=== PATIENT | male | born 1995 | race Caucasian/White ===

== ENCOUNTER 2017-05-18 12:11 | Emergency (ER) | payer BC, OTHER ==
[~2017-05-18] VITALS: Ht 175.3 cm; Wt 63.6 kg
[~2017-05-18 12:11] MED LIST: IBU-6600 MG PO
[2017-05-18 12:17] VITALS: BP 144/77; PULSE 84; TEMP 97.8
[2017-05-18 13:32] LABS: PH 7 (5-8); SQUAMOUS EPITHELIAL None Seen /hpf; URINE APPEARANCE Cloudy; URINE BACTERIA Rare /hpf; URINE BILIRUBIN Negative (NEGATIVE); URINE BLOOD Negative (NEGATIVE); URINE COLOR Yellow; URINE GLUCOSE Negative (NEGATIVE); URINE KETONE Negative (NEGATIVE); URINE RBC 0-2 /hpf; URINE UROBILINOGEN Negative (NEGATIVE); URINE WBC 0-2 /hpf
== END 2017-05-18 14:53 | disposition home or self-care (01) ==
LOC: COL.ER 12:11
PROVIDERS: Physician Assistant
DX: N50.811 Right testicular pain (principal)